=== PATIENT | male | born 1970 | race Hispanic/Latino ===

== ENCOUNTER → 2018-02-23 | Day surgery (SDC) | payer OTHER ==
--- NOTE | 2018-02-22 19:55 | Pre Op History & Physical ---
DATE OF SURGERY: 02/23/2018 CHIEF COMPLAINT: Chronic sinusitis, nasal obstruction. HISTORY OF PRESENT ILLNESS: This 48-year-old male has history of nasal obstruction. He has postnasal drip discharge from his nose. He has nasal obstruction, worse on the left side. The patient has no epistaxis. The patient denies any facial pain. He was sent over by his dentist because a cyst was noted on the CT of the sinuses. 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 He has been treated with multiple antibiotics with no improvement. A CT scan of paranasal sinuses done before surgery showed the patient has chronic sinusitis with polypoid changes in the right maxillary sinus, left sphenoid sinus, frontal sinus involvement and marked deviated nasal septum, bilateral ethmoid involvement and to the lesser extent left maxillary sinus involvement and right sphenoid sinus disease. The patient had previous endoscopic sinus surgery in March 2002 and then sinuplasty in February of 2011 and December of 2013. He was doing well until recently. REVIEW OF SYSTEMS: Showed no recent cardiovascular, respiratory or GI problem. PAST MEDICAL HISTORY: The patient has no significant medical problem. PAST SURGICAL HISTORY: The patient had previous endoscopic sinus surgery, but no other surgery otherwise. ALLERGIES: ALLERGIC TO NEOSPORIN. MEDICATIONS: He is on Zyrtec. SOCIAL HISTORY: Nonsmoker and a social drinker. FAMILY HISTORY: Noncontributory. PHYSICAL EXAMINATION: VITAL SIGNS: Within normal limits. EAR: Normal tympanic membranes bilaterally. NOSE: Hypertrophy of inferior turbinate. THROAT: Oropharynx and oral cavity show no obvious abnormality. NECK: No lymph node or thyroid palpable. CHEST: Good air entry bilaterally. CARDIOVASCULAR: S1 and S2. No murmur noted. Mr. Silva has chronic sinusitis, nasal obstruction which has been resistant to conservative therapy. The suggested treatment is endoscopic sinus surgery, septoplasty, resection of inferior turbinate and other necessary procedure. Complications of procedure include, but not limited to bleeding, infection, CSF leak, blindness, double vision, meningitis, septal perforation, septal hematoma, persistent nasal obstruction, persistent nasal crusting, nasal deformity or recurrence of the sinus problem. The alternative would be continued observation, continued antibiotic therapy, topical nasal steroid therapy, systemic steroid therapy, decongestant. The patient has elected to undergo the surgical procedure. Job#: [id number] GE
[~2018-02-23] MED LIST: DESFLURANE 240 ML BTL INH ONE; DEXAMETHASONE SOD PHOS 10 MG/1 ML VIAL ONE; EPINEPHRINE HCL INJ 1 MG/ML AMP ONE; FENTANYL CITRATE/PF 100MCG/2 ML INJ ONE; FLONASE16 GM; GLYCOPYRROLATE INJ 1MG/ 5 ML SYR ONE; LIDOCAINE 1% W/EPINEPHRINE 20 ML VIAL ONE; LIDOCAINE HCL 2% LOCAL INJ 5 ML SDV VIAL INJ ONE; MIDAZOLAM HCL 2 MG/2 ML VIAL ONE; NEOSTIGMINE 5 MG/5ML SYR ONE; ONDANSETRON HCL INJ 2 MG/ML VIAL ONE; PROPOFOL IV EMULSION 10 MG/ML 20 ML VIAL ONE; ROCURONIUM BROMIDE 10 MG/ML 5ML VIAL ONE; SYMBICORT 16010.2 GM PO; ZYRTEC10 M3 PO
--- NOTE | 2018-02-23 09:31 | Operative Report ---
DATE OF PROCEDURE: February 23, 2018 PREOPERATIVE DIAGNOSES 1. Chronic sinusitis. 2. Nasal obstruction. POSTOPERATIVE DIAGNOSES 1. Chronic sinusitis. 2. Nasal obstruction. OPERATIVE PROCEDURES 1. Bilateral exploration of nasal frontal recess area. 2. Bilateral anterior and posterior ethmoidectomy. 3. Bilateral maxillary sinus antrostomy. 4. Bilateral resection of polyps of maxillary antrum. 5. Bilateral sphenoidectomy. 6. Septoplasty. ANESTHESIA: Anesthesiology group. INDICATIONS: This is a 48-year-old male who has a history of nasal obstruction, postnasal drip, discharge from his nose. He has frontomaxillary pain. Decreased sense of smell. The patient had previous endoscopic sinus surgery in 2001. Was doing well until recently. The patient's condition has been treated with topical nasal steroids, decongestant, antibiotics with no help of the condition. He also had allergy shots with no improvement. The patient's main complaint is postnasal drip. On examination, he was noted to have a deep nasal septum to the left side about 30% anteriorly. The CT scan of the paranasal sinuses showed the patient has chronic sinusitis involving the frontal sinus, ethmoid sinus and maxillary sinuses. Sphenoid sinus was also noted to be blocked. It confirmed the deep nasal septum. It was decided endoscopic sinus surgery, septoplasty and other necessary procedures would be beneficial for him. PROCEDURE: This patient was taken to the operating room and put under general anesthesia, endotracheally intubated. The nose was injected with 1% Xylocaine with 1:100,000 epinephrine for hemostasis. Epinephrine-soaked pledget was inserted in the nose and subsequently removed. The left paranasal sinuses were approached first. Using the Entellus device, the frontal sinus was entered. This was dilated with the balloon. The frontal sinus was re-irrigated with copious amount of normal saline. Debris and tissue were irrigated out. Using a microshaver, anterior and posterior ethmoid sinuses were dissected in a systematic fashion. Polypoid changes were noted of both the anterior and posterior ethmoid sinus area. Care was taken during dissection to ascertain the orbit was not entered. The sphenoid sinus was entered through a natural ostium. This was enlarged using a microshaver. Polypoid changes in the sphenoid sinus was dissected using a microshaver. The maxillary antrum was addressed. The natural ostium of the maxillary sinus was enlarged anteriorly and posteriorly using backbiting and True-Cut forceps respectively. Polypoid changes in the maxillary antrum was dissected using a microshaver. The right paranasal sinuses were approached. Middle turbinate was medialized. The frontal sinus was entered with the Entellus device. Nasal frontal recess area was dilated with the balloon. The frontal sinus was irrigated with copious amount of normal saline. Debris and tissue were irrigated out. The sphenoid sinus was entered through the natural ostium. This was enlarged using a microshaver. Polypoid changes in the sphenoid sinus was dissected using a microshaver. The anterior and posterior ethmoid sinuses were dissected in a systematic fashion. Polypoid changes were noted in both the anterior and posterior ethmoid sinus area. Care was taken during dissection to ascertain the orbit was not entered. The natural ostium of the maxillary sinus was enlarged anteriorly and posteriorly using a True-Cut forceps and a backbiter respectively. The polypoid changes in the sphenoid sinus was dissected using a microshaver. The septoplasty was performed. A hemitransfixion incision was done on the left side. Mucoperichondrial flap was elevated to the left. Bony cartilage junction was encountered, and this was . Perpendicular plate of the ethmoid was transected. This was removed along with the vomer. The quadrangular cartilage collagenous portion was resected using the Quincy elevator. Quadrangular cartilage being freed from posterior to inferior. Constraint was able to swing back in the midline. Hemitransfixion incision was closed using 4-0 chromic suture in an interrupted fashion. Septal whip stitch was done using 4-0 plain gut suture to reapproximate the mucoperichondrial flap and prevent septal hematoma formation. The resection of the inferior turbinate was undertaken. An incision was made in the anterior portion of the left inferior turbinate. A mucosal flap was elevated in the lateral portion on the medial portion of the inferior turbinate. The anterior third of the lateral inferior turbinate was dissected using a microshaver. Similar procedure was carried on the right side. Again, after the incision was made in the anterior portion, the mucosal flap was elevated on the medial portion and anterior third of the inferior turbinate was dissected using the microshaver. Nasal pole was inserted in the sinus cavities on either side. This was done to prevent synechiae formation and for hemostasis. A small nasal pole was also inserted in the anterior portion of the inferior turbinate on the right side where the incision was to prevent potential bleeding. The patient tolerated the above procedure well with an estimated blood loss of about 20 mL. He was given 20 mg of Decadron intraoperatively. Patient was able to be transferred to the recovery room in stable condition. Job#: [id number] RI
== END | disposition home or self-care (01) ==
LOC: OR 05:40
PROVIDERS: ATTEND Otolaryngology Otolaryngology/Facial Plastic Surgery
DX: J34.89 Other specified disorders of nose and nasal sinuses (principal); J32.8 Other chronic sinusitis
CPT/HCPCS: 31256; 31259; 88305; 93005; J0171; J1100; J2001; J2250; J2405; J3490; 88304